=== PATIENT | male | born 1950 | race Asian ===

== ENCOUNTER 2018-09-11 08:15 | Day surgery (SDC) | payer OTHER ==
[2018-09-10 16:04] LABS: Absolute Lymphocytes (CBC) 2.2 K/uL (0.7-4.9); Absolute Monocytes 0.6 K/uL (0.1-1.3); Absolute Neutrophil 5.5 K/uL (1.8-8.0); Basophils % 0.9 % (0-1.3); Eosinophils % 3.7 % (0-4.4); Hematocrit 44.4 % (39.6-49.0); Lymphocytes % 25.3 % (15.3-44.8); MPV 7.8 fL (7.6-11.3); Monocytes % 7.2 % (3.3-12.3); RBC Red Blood Cell Count 4.84 M/uL (4.33-5.43)
[2018-09-10 16:19] LABS: ALT/SGPT 35 U/L (12-78); AST/SGOT 22 U/L (15-37); Albumin 4.1 g/dL (3.4-5.0); Alkaline Phosphatase 124 U/L (45-117); Amylase Level 115 U/L (25-115); BUN Blood Urea Nitrogen 21 mg/dL (7-18); Bicarbonate 29 mmol/L (21-32); Bilirubin Direct < 0.1 mg/dL (0-0.2); Bilirubin Total 0.2 mg/dL (0.2-1.0); Glucose Level 105 mg/dL (74-106); Lipase 377 U/L (73-393); Potassium 4.4 mmol/L (3.5-5.1); Protein, Total 8.5 g/dL (6.4-8.2); Sodium Level 142 mmol/L (136-145)
--- NOTE | 2018-09-10 17:48 | RAD REPORT ---
EXAM DESCRIPTION: RAD - Chest Pa And Lat (2 Views) - 09/10/2018 3:36 pm CLINICAL HISTORY: Preop chest, pending gallbladder surgery COMPARISON: July 2018 TECHNIQUE: PA and lateral views of the chest were obtained. FINDINGS: The lungs are clear. Lung markings are similar to comparison. Heart size is normal and ce ntral vasculature is within normal limits. No pleural effusion or pneumothorax seen. No acute bony finding noted. No aortic abnormality. Small metallic fragments are present in the right lateral so ft tissues. IMPRESSION: No acute cardiopulmonary process. No significant change from comparison.
[2018-09-11] MEDS ORDERED: Ringers Lactate 1,000 ML IV ONE (08:38)
[2018-09-11] MEDS: CEFOXITIN/SWI 1gm 1 GM/10 ML SYR ONE ×2 (09:48→10:40)
[2018-09-11] MEDS: BUPIVACAINE 0.5% PF 10 ML VIAL ONE ×2 (09:54→11:06)
[2018-09-11] MEDS ORDERED: PROPOFOL 200 MG/20 ML VIAL IV ONE (10:04)
[2018-09-11] MEDS ORDERED: FENTANYL CITR 100 MCG/2 ML ONE ×2 (10:05→11:17)
[2018-09-11] MEDS ORDERED: GLYCOPYRROLATE 0.2 MG/ML SYR ONE ×2 (10:05→10:06)
[2018-09-11] MEDS ORDERED: LIDOCAINE 2% MPF 5 ML VIAL ONE (10:06)
[2018-09-11] MEDS ORDERED: ROCURONIUM 50 MG/5 ML VIAL IV ONE (10:07)
[2018-09-11] MEDS ORDERED: NEOSTIGMINE 1 MG/ML -10 ML VIAL ONE (10:07)
[2018-09-11] MEDS ORDERED: MIDAZOLAM HCL 2 MG/2 ML INJ ONE (10:08)
[2018-09-11] MEDS ORDERED: BUPIVACAINE 0.5% PF 10 ML VIAL ONE (11:02)
[2018-09-11] MEDS ORDERED: EPHEDRINE SULF 50 MG/ML VIAL ONE (11:12)
--- NOTE | 2018-09-11 11:49 | P.BOP ---
Preoperative diagnosis: acute cholecystitis, symptomatic cholelithiasis Postoperative diagnosis: same, suppurative cholecystitis Primary procedure: Laparoscopic cholecystectomy Estimated blood loss: <10cc Specimen: gb Findings: gallbladder with pus inside Anesthesia: General Complications: None Drain(s): GABRIELA drain Transferred to: Recovery Room Condition: Good
[2018-09-11] MEDS ORDERED: NALOXONE 0.4 MG/ML VIAL ONE (11:59)
--- NOTE | 2018-09-11 23:28 | OP ---
Date of Procedure: 09/11/2018 Surgeon: Wilson Cedeño MD Preoperative Diagnoses: 1.Acute cholecystitis. 2.Symptomatic cholelithiasis. Postoperative Diagnoses: 1.Acute cholecystitis. 2.Symptomatic cholelithiasis. 3.Suppurative cholecystitis. Procedure: Laparoscopic cholecystectomy. Anesthesia: General plus local. Drain: GABRIELA #10. Findings: The patient has gallbladder thickening, distention, with a purulent discharge and content. Indications: This is the case of a 68-year-old patient who comes to us with above diagnosis. I full y explained the benefits, alternatives, and risks of laparoscopic, possible open cholecystectomy, whi ch include, but are not limited to infection, bleeding, damage to adjacent structures, anesthesia com plication, choledocholithiasis, bile leak, pancreatitis, KS, and even . He also understands thi s may not relieve any symptoms. He might need more than one surgical intervention. He understood, s igned a consent. Description Of Procedure: The patient was brought to the operating room, placed in supine position. Anesthesia was done without complication. Abdominal area was prepped and draped in a sterile fashio n. Marcaine 0.5% was injected for local anesthetic, followed by sharp incision of the skin in the in fraumbilical region. Incision was carried down to fascia, which was opened under direct vision. Per itoneum was encountered, opened under direct vision. Vicryl #1 placed inside the fascia. Mónica tro car was carefully introduced. Pneumoperitoneum was obtained. I placed 3 more trocars, 5 mm each one of them, under direct visualization in the right upper quadrant. This allowed me to see the gallbla dder wrapped with omentum. Carefully, the omentum was removed. Those adhesions were removed from th e gallbladder, noticing a distended and inflamed gallbladder with cholecystitis. In order for me to proceed, I had to do deflation of the gallbladder. So, under direct visualization, we put an Endo ne edle in the gallbladder. We noticed the patient had some purulent discharge coming from the gallblad gricelda. A grasper was placed in the fundus of the gallbladder. The needle was removed under direct vis ualization. Another grasper was placed in the infundibulum, and the gallbladder was retracted in the inferolateral fashion exposing the triangle of Calot and obtaining critical view of safety. The cys tic duct and cystic artery were clearly isolated and freed circumferentially, and a connection betwee n those and the gallbladder was clearly identified. I proceeded to ligate those by using at least 3 clips proximal, 1 clip distal, and ligation in middle. Same was done with the cystic artery. No arleth e leak. No bleeding. The gallbladder was removed from liver using Bovie cauterizer and removed from the abdominal cavity using EndoCatch through the umbilical incision. The area was inspected once ag ain with profuse irrigation of that area. Clips were intact. The patient had inflammation over the area, once again, and purulent discharge in the area of the gallbladder with inflammation surrounding the area. I believe it will be safer to leave a GABRIELA drain over that region to collect fluid from bao t area, and then we will remove that eventually. We are also going to treat the patient with antibio tics. He was already on Cipro and still having the results. No bile leak. No bleeding. The GABRIELA was connected to bulb suction and secured in place with 3-0 nylon. At that moment, we proceeded to nam[place] ve the trocars under direct vision, deflated the pneumoperitoneum, closed the fascia with #1 Vicryl, irrigated the subcutaneous tissue, closed that with 3-0 chromic and skin with ashlyn. Sponge count and instrument counts were correct. The patient tolerated the procedure well. The patient was sent to recovery in stable condition. RASHARD Voice ID: [id number] Report ID: [id number]
--- NOTE | 2018-09-11 23:58 | DS ---
Date of Discharge: 09/11/2018 Diagnoses: 1.Acute cholecystitis. 2.Symptomatic cholelithiasis. Procedure: Laparoscopic cholecystectomy. Disposition: Home if he can tolerate pain medication by mouth, and he is clinically stable. If he goes home today, then follow up in my office this Sunday to evaluate a GABRIELA drain for possible re moval. The patient will be added p.o. q.12 hours as an antibiotic. Vicodin q.4 hours p.r .n. pain. Keep area dry for 48 hours, then may shower. GABRIELA drain; record output every 24 hours. No heavy lifting. TRACEY/DAIN Voice ID: [id number] Report ID: [id number]
== END 2018-09-11 13:20 | disposition home or self-care (01) ==
LOC: OR 08:15
PROVIDERS: ATTEND Surgery
PROC: 0FT44ZZ Resection of Gallbladder, Percutaneous Endoscopic Approach (ICD-10-PCS; principal; 2018-09-11 09:30)
DX: K80.12 Calculus of gallbladder with acute and chronic cholecystitis without obstruction (principal); I10 Essential (primary) hypertension; I25.10 Atherosclerotic heart disease of native coronary artery without angina pectoris; K21.9 Gastro-esophageal reflux disease without esophagitis; I25.2 Old myocardial infarction; Z79.82 Long term (current) use of aspirin; Z95.5 Presence of coronary angioplasty implant and graft
CPT/HCPCS: 36415; 47562; 71046; 80048; 80076; 82150; 83690; 85025; 88304; J2250; J2310; J2704; J2710; J3010 ×2

== ENCOUNTER 2024-12-09 15:03 | Inpatient (IN) | payer OTHER ==
[2024-12-09 15:25] LABS: Absolute Basophils 0.1 K/uL (0-0.5); Absolute Eosinophils 0.2 K/uL (0-0.5); Absolute Lymphocytes (CBC) 1.5 K/uL (0.7-4.9); Absolute Monocytes 0.6 K/uL (0.1-1.3); Absolute Neutrophil 3.8 K/uL (1.8-8.0); Basophils % 1.2 % (0-1.3); Eosinophils % 3.7 % (0-4.4); Hematocrit 36.5 % (39.6-49.0); Hemoglobin 12.2 g/dL (13.6-17.9); Lymphocytes % 24.1 % (15.3-44.8); MCH 30.9 pg (27.0-35.0); MCHC 33.5 g/dL (32.0-36.0); MCV 92.3 fL (80-100); MPV 8.4 fL (7.6-11.3); Monocytes % 9.2 % (3.3-12.3); Neutrophils % 61.8 % (41.7-73.7); Nucleated Red Blood Cells % 0.1 % (0-0); Platelets 334 thou/uL (152-406); RBC Red Blood Cell Count 3.96 M/uL (4.33-5.43); Red Cell Distribution Width 15.7 % (12.1-15.2)
[2024-12-09 15:48] LABS: Anion Gap 9.6 mEq/L (5.0-15.0); Potassium 3.6 mEq/L (3.5-5.1); Troponin High Sensitivity 8.6 pg/mL (<58.9)
--- NOTE | 2024-12-09 15:48 | RAD REPORT ---
EXAM: Chest Single View HISTORY: 74 years Male near syncope COMPARISON: 09/10/2018 FINDINGS: LUNGS/PLEURA: Blunted left costophrenic angle with possible underlying atelectasis or consolidation. CARDIAC/MEDIASTINUM: The cardiac silhouette is within normal limits. UPPER ABDOMEN: No significant abnormality. BONES: Sternotomy. No acute abnormality. LINES/TUBES/OTHER: N/A IMPRESSION: Suspected small left pleural effusion or pleural parenchymal thickening with possible underlying atel ectasis. No definite acute process. No pulmonary edema.
--- NOTE | 2024-12-09 18:01 | RAD REPORT ---
EXAMINATION: CTA CHEST PE CLINICAL INDICATION: Male, 74 years old. hypotension, near syncope TECHNIQUE: This examination was performed according to an angiographic protocol with 3D post-processi ng. This involves 3D reconstructions, MIPs, volume rendered images and/or shaded surface rendering. One or more of the following dose reduction techniques were used: Automated exposure control, adjustm ent of the mA and/or kV according to patient size, and/or iterative reconstruction. Unless otherwise specified, incidental findings do not require dedicated imaging follow-up. [id number]. COMPARISON: Same-day chest radiograph FINDINGS: LOWER NECK: Visualized thyroid gland and soft tissues are normal. MEDIASTINUM AND LYMPH NODES: No mediastinal mass or fluid collection. Normal size mediastinal, hilar, and axillary lymph nodes. Mild distal esophageal thickening. THORACIC AORTA: No thoracic aortic aneurysm. Atherosclerotic changes are present. PULMONARY ARTERIES: Caliber is within normal limits. No pulmonary emboli identified. HEART: Normal heart size. Moderate coronary artery calcifications.No significant pericardial effusion . LUNGS AND AIRWAYS: Left lower lobe atelectasis with mild mucoid impacted left lower lobe airways but no definite consolidation..Motion artifact limits evaluation for pulmonary nodule detection. PLEURA: Small bilateral effusions. No pneumothorax. OSSEOUS STRUCTURES AND CHEST WALL: Sternotomy. No acute fracture. UPPER ABDOMEN: No acute abnormalities.Benign appearing low density liver lesions. IMPRESSION: Negative for pulmonary embolism. Small left pleural effusion and most likely atelectasis which may be in part related to some mucoid impacted left lower lobe airways. Pneumonia less likely but difficult to entirely exclude.
--- NOTE | 2024-12-09 18:33 | EDPHYS ---
Physician Documentation [facility] Name: Karla Cortes Jr Age: 74 yrs Sex: Male : 1950 Arrival Date: 12/09/2024 Time: 15:03 Bed 18 Private MD: ED Physician Yony Telles HPI: 12/09 16:56 This 74 yrs old Male presents to ER via EMS with complaints of Near Syncope. ms3 16:56 74-year-old male with past medical history of coronary arthrosclerosis presents to the [facility] emergency department via [facility] for near syncope episode and hypotension. Patient had triple bypass 3 weeks prior at [facility]. EMS notes patient has a history of syncopal episode. On EMS arrival patient's blood pressure was 80s over 40s. Patient was placed in Trendelenburg with improvement of blood pressure.. Historical: - Allergies: 15:08 No Known Allergies; me1 - PMHx: 15:08 Coronary atherosclerosis; me1 - PSHx: 15:08 Coronary artery bypass graft; me1 - Immunization history:: Adult Immunizations up to date. - Infectious Disease History:: Denies. - Social history:: Smoking status: Patient denies any tobacco usage or history of. ROS: 16:56 Constitutional: Negative for fever, and chills. Cardiovascular: Negative for chest ms3 pain, and palpitations. Respiratory: Negative for shortness of breath, cough, wheezing, and pleuritic chest pain, Abdomen/GI: Negative for abdominal pain, nausea, vomiting, diarrhea, and constipation, MS/Extremity: Negative for injury and deformity, Skin: Negative for injury, rash, and discoloration, 16:56 Neuro: Positive for near syncope, Exam: 16:56 Constitutional: This is a well developed, well nourished patient who is awake, alert, ms3 and in no acute distress. 16:56 Cardiovascular: Regular rate and rhythm with a normal S1 and S2. No gallops, murmurs, or rubs. Normal PMI, no JVD. No pulse deficits. Respiratory: Lungs have equal breath sounds bilaterally, clear to auscultation and percussion. No rales, rhonchi or wheezes noted. No increased work of breathing, no retractions or nasal flaring. Abdomen/GI: Soft, non-tender, with normal bowel sounds. No distension or tympany. No guarding or rebound. No evidence of tenderness throughout. Skin: Warm, dry with normal turgor. Normal color with no rashes, no lesions, and no evidence of cellulitis. Midline scar on sternum without erythema or drainage 16:56 Chest/axilla: Midline scar over sternum without erythema or drainage. 16:58 ECG was reviewed by the Attending Physician. ms3 Vital Signs: 15:05 BP 115 / 66; Pulse 61; Resp 18; Temp 98.4; Pulse Ox 99% ; Weight 67.13 kg; Height 5 ft. me1 5 in. ; Pain 0/10; 15:30 BP 119 / 55; Pulse 61; Resp 16; Pulse Ox 98% ; me1 16:00 BP 121 / 67; Pulse 63; Resp 16; Pulse Ox 99% ; me1 17:00 BP 124 / 54; Pulse 63; Resp 16; Pulse Ox 97% ; me1 18:00 BP 121 / 70; Pulse 62; Resp 14; Pulse Ox 98% ; me1 15:05 Body Mass Index 24.63 (67.13 kg, 165.1 cm) me1 15:05 Pain Scale: Adult me1 MDM: 15:08 Medical Screening Exam initiated ms3 16:56 Differential Diagnosis: cardiac arrhythmia, drug effect, idiopathic syncope, vasovagal ms3 episode. 19:10 Data reviewed: vital signs, nurses notes, lab test result(s), EKG, radiologic studies, ms3 and as a result, I will admit patient. Consideration of Admission/Observation Patient was admitted/placed on observation. Management of patient was discussed with the following: Hospitalist: Dr Marmolejo. Management of patient was discussed with the following: Production Machine Shop Supervisor: Dr Rivera- Recommends Echo in the morning. Independent interpretation of the following test(s) in the Emergency Department EKG: See my EKG interpretation above. Counseling: I had a detailed discussion with the patient and/or guardian regarding the historical points, exam findings, and any diagnostic results supporting the discharge/admit diagnosis, lab results, radiology results, the need for further work-up and treatment in the hospital. ED course: Discussed necessity for observation with patient's family. They understand and agree with plan. All questions were answered. 12/09 15:08 Order name: Basic Metabolic Panel; Complete Time: 15:57 ms3 12/09 15:08 Order name: CBC with Diff; Complete Time: 15:57 ms3 12/09 15:08 Order name: D-Dimer; Complete Time: 15:57 ms3 12/09 15:08 Order name: Magnesium; Complete Time: 15:57 ms3 12/09 15:08 Order name: NT PRO-BNP; Complete Time: 15:57 ms3 12/09 15:08 Order name: Troponin HS; Complete Time: 15:57 ms3 12/09 20:07 Order name: CBC with Automated Diff EDMS 12/09 20:07 Order name: Comprehensive Metabolic Panel EDMS 12/09 20:07 Order name: Magnesium EDMS 12/09 20:07 Order name: Lipid Profile EDMS 12/09 20:07 Order name: Lipid Profile EDMS 12/09 20:07 Order name: Troponin High Sensitivity EDMS 12/09 20:07 Order name: Troponin High Sensitivity EDMS 12/09 20:07 Order name: Troponin High Sensitivity EDMS 12/09 20:07 Order name: Troponin High Sensitivity EDMS 12/09 20:07 Order name: Troponin High Sensitivity EDMS 12/09 20:07 Order name: Troponin High Sensitivity EDMS 12/09 15:08 Order name: XRAY Chest (1 view); Complete Time: 15:57 ms3 12/09 15:58 Order name: CT Chest For PE Angio; Complete Time: 18:07 ms3 12/09 20:07 Order name: Echo with Doppler ED12/09 15:08 Order name: EKG; Complete Time: 15:09 ms3 12/09 20:07 Order name: CONS Physician Consult ED12/09 15:08 Order name: Cardiac monitoring; Complete Time: 15:25 ms3 12/09 15:08 Order name: EKG - Nurse/Tech; Complete Time: 15:25 ms3 12/09 15:08 Order name: IV Saline Lock; Complete Time: 15:12 ms3 12/09 15:08 Order name: Labs collected and sent; Complete Time: 15:12 ms3 12/09 15:08 Order name: O2 Per Protocol; Complete Time: 15:12 ms3 12/09 15:08 Order name: O2 Sat Monitoring; Complete Time: 15:12 ms3 EC:58 Rate is 61 beats/min. Rhythm is regular. QRS [place] is Normal. PA interval is normal. QRS ms3 interval is normal. Clinical impression: NSR w/ Non-specific ST/T Changes. Interpreted by me. Reviewed by me. Administered Medications: No medications were administered Disposition Summary: 12/09/24 18:33 Hospitalization Ordered Notes: Hospitalization Status: Observation ms3 Provider: Obey Marmolejo ms3 Condition: Stable ms3 Problem: new ms3 Symptoms: are unchanged ms3 Bed/Room Type: Standard ms3 Location: [facility] ER HOLD(12/10/24 12:47) 7 Room Assignment: ERHOLD-(12/10/24 12:47) jl7 Diagnosis - Syncope Near ms3 - Hypotension, unspecified ms3 Forms: - Medication Reconciliation Form ms3 - SBAR form ms3 - Leadership Thank You Letter ms3 Signatures: Dispatcher [employer] EDMS Merlyn Montes Jahala, RN RN jl7 Yony Telles, DO ms3 Kylie Torres RN RN vc1 Kandice Pennington RN RN me1 Corrections: (The following items were deleted from the chart) 15:09 15:09 BASIC METABOLIC PANEL+C.LAB.BRZ ordered. EDMS EDMS 15:09 15:09 CBC+H.LAB.BRZ ordered. EDMS EDMS 15:09 15:09 D-DIMER+COAG.LAB.BRZ ordered. EDMS EDMS 15:09 15:09 MAGNESIUM+C.LAB.BRZ ordered. EDMS EDMS 15:09 15:09 PROBNP+C.LAB.BRZ ordered. EDMS EDMS 15:09 15:09 Troponin High Sensitivity+C.LAB.BRZ ordered. EDMS EDMS 21:04 18:33 Telemetry/MedSurg (observation) ms3 vc1 21:04 18:33 ms3 vc1 12/10 11:03 12/09 21:04 [facility] ER HOLD vc1 bd 12/10 11:03 12/09 21:04 ERHOLD- vc1 bd 12/10 12:47 11:03 Telemetry/MedSurg (observation) bd jl7 12:47 11:03 430 bd jl7
--- NOTE | 2024-12-09 18:33 | ER ---
Nurse's Notes [facility] Name: Karla Cortes Jr Age: 74 yrs Sex: Male : 1950 Arrival Date: 12/09/2024 Time: 15:03 Bed 18 Private MD: Diagnosis: Syncope Near;Hypotension, unspecified Presentation: 12/09 15:05 Chief complaint: EMS states: toned out for near syncope. Patient was eating and became me1 lightheaded. No LOC. Triple bypass done about 3 weeks ago. Hx of syncopal episodes. BP was 80/40 sitting when EMS arrived. Coronavirus screen: Vaccine status: Patient reports receiving the 2nd dose of the covid vaccine. Ebola Screen: No symptoms or risks identified at this time. Initial Sepsis Screen: Does the patient meet any 2 criteria? No. Patient's initial sepsis screen is negative. Does the patient have a suspected source of infection? No. Patient's initial sepsis screen is negative. Risk Assessment: Do you want to hurt yourself or someone else? Patient reports no desire to harm self or others. Onset of symptoms was December 09, 2024 at 14:30. 15:05 Method Of Arrival: EMS: [facility] 15:05 Acuity: JIM 3 me1 Triage Assessment: 15:09 General: Appears in no apparent distress. well groomed, well developed, well nourished, me1 Behavior is calm, cooperative, appropriate for age, Reports near syncope when eating. No complaints at this time. Pain: Denies pain. EENT: No signs and/or symptoms were reported regarding the EENT system. Neuro: Level of Consciousness is awake, alert, obeys commands, Oriented to person, place, time, situation, Appropriate for age. Neuro: Reports near syncope. Cardiovascular: Patient's skin is warm and dry. Respiratory: Airway is patent Respiratory effort is even, unlabored, Respiratory pattern is regular, symmetrical. GI: No signs and/or symptoms were reported involving the gastrointestinal system. : No signs and/or symptoms were reported regarding the genitourinary system. Derm: Skin is intact, is healthy with good turgor, Skin is pink, warm \T\ dry. Musculoskeletal: No signs and/or symptoms reported regarding the musculoskeletal system. Historical: - Allergies: 15:08 No Known Allergies; me1 - PMHx: 15:08 Coronary atherosclerosis; me1 - PSHx: 15:08 Coronary artery bypass graft; me1 - Immunization history:: Adult Immunizations up to date. - Infectious Disease History:: Denies. - Social history:: Smoking status: Patient denies any tobacco usage or history of. Screenin:11 [facility] ED Fall Risk Assessment (Adult) History of falling in the last 3 months, me1 including since admission No falls in past 3 months (0 pts) Confusion or Disorientation No (0 pts) Intoxicated or Sedated No (0 pts) Impaired Gait No (0 pts) Mobility Assist Device Used No (0 pt) Altered Elimination No (0 pt) Score/Fall Risk Level 0 - 2 = Low Risk Maintained a safe environment, Provided non-skid footwear, Hourly rounding (assess needs \T\ fall precautionary measures) done. Abuse screen: Denies threats or abuse. Nutritional screening: No deficits noted. Tuberculosis screening: No symptoms or risk factors identified. Assessment: 15:11 General: see triage assessment. me1 Vital Signs: 15:05 BP 115 / 66; Pulse 61; Resp 18; Temp 98.4; Pulse Ox 99% ; Weight 67.13 kg; Height 5 ft. me1 5 in. ; Pain 0/10; 15:30 BP 119 / 55; Pulse 61; Resp 16; Pulse Ox 98% ; me1 16:00 BP 121 / 67; Pulse 63; Resp 16; Pulse Ox 99% ; me1 17:00 BP 124 / 54; Pulse 63; Resp 16; Pulse Ox 97% ; me1 18:00 BP 121 / 70; Pulse 62; Resp 14; Pulse Ox 98% ; me1 15:05 Body Mass Index 24.63 (67.13 kg, 165.1 cm) me1 15:05 Pain Scale: Adult me1 ED Course: 15:05 Patient arrived in ED. me1 15:05 Inserted saline lock: 20 gauge in right antecubital area, using aseptic technique. ld1 Blood collected. Flushed with 10 mL NS. 15:08 Yony Telles DO is Attending Physician. ms3 15:08 Triage completed. me1 15:09 Arm band placed on Patient placed in an exam room. me1 15:11 No provider procedures requiring assistance completed. me1 15:11 Patient has correct armband on for positive identification. Bed in low position. Call me1 light in reach. Side rails up X2. Provided Education on: POC. Verbalized understanding.. Client placed on continuous cardiac and pulse oximetry monitoring. NIBP monitoring applied. teletypesetter monitor on. Pulse ox on. NIBP on. 15:12 Basic Metabolic Panel Sent. me1 15:12 CBC with Diff Sent. me1 15:12 D-Dimer Sent. me1 15:12 Magnesium Sent. me1 15:12 NT PRO-BNP Sent. me1 15:12 Troponin HS Sent. me1 15:25 Kandice Pennington, RN is Primary Nurse. me1 15:26 EKG done, by ED staff, reviewed by Yony Telles DO. me1 15:44 XRAY Chest (1 view) In Process Unspecified. EDMS 17:49 CT Chest For PE Angio In Process Unspecified. EDMS 18:32 Obey Marmolejo MD is Hospitalizing Provider. ms3 12/10 07:00 Patient admitted, IV remains in place. intact, No redness/swelling at site. jl7 Administered Medications: No medications were administered Medication: 12/09 15:11 VIS not applicable for this client. me1 Outcome: 18:33 Decision to Hospitalize by Provider. ms3 12/10 07:00 Admitted to ER Hold. Please see [facility] for further documentation. jl7 Condition: stable Discharge instructions given to patient, family, Instructed on the need for admit, Demonstrated understanding of instructions, 15:39 Patient left the ED. jl7 Signatures: Dispatcher [employer] Miguelangel Delcid RN Yony Hernandez DO DO ms3 Laura Telles RN RN 1 Kandice Pennington, FRANCISCO JAVIER RN nh1
[2024-12-09] MEDS ORDERED: ONDANSETRON 4 MG/2 ML VIAL IV PRN (20:00)
[2024-12-09 22:51] VITALS: BMI 24.6
[2024-12-09] MEDS: AMIODARONE HCL 200 MG TAB PO ONE (23:55)
[2024-12-10] MEDS ORDERED: AMIODARONE HCL 200 MG TAB ONE (00:09)
[2024-12-10 04:48] LABS: Absolute Basophils 0.1 K/uL (0-0.5); Absolute Eosinophils 0.2 K/uL (0-0.5); Absolute Lymphocytes (CBC) 1.6 K/uL (0.7-4.9); Absolute Monocytes 0.5 K/uL (0.1-1.3); Absolute Neutrophil 3.7 K/uL (1.8-8.0); Basophils % 1.1 % (0-1.3); Eosinophils % 3.9 % (0-4.4); Hematocrit 37.5 % (39.6-49.0); Hemoglobin 13.1 g/dL (13.6-17.9); Lymphocytes % 25.8 % (15.3-44.8); MCH 31.8 pg (27.0-35.0); MCV 90.9 fL (80-100); Monocytes % 8.8 % (3.3-12.3); Neutrophils % 60.4 % (41.7-73.7); Nucleated Red Blood Cells % 0.1 % (0-0); Platelets 315 thou/uL (152-406); RBC Red Blood Cell Count 4.13 M/uL (4.33-5.43); Red Cell Distribution Width 15.6 % (12.1-15.2)
[2024-12-10 05:01] LABS: Albumin 3.5 g/dL (3.4-5.0); Albumin/Globulin Ratio 1.1 (1.1-1.8); Anion Gap 9.6 mEq/L (5.0-15.0); Bilirubin Total 0.5 mg/dL (0.2-1.0); Globulin 3.2 g/dL (2.3-3.5); Magnesium 2.1 mg/dL (1.6-2.4); Potassium 3.6 mEq/L (3.5-5.1); Protein, Total 6.7 g/dL (6.4-8.2)
--- NOTE | 2024-12-10 05:13 | P.HP ---
Certification for Inpatient Patient admitted to: Inpatient With expected LOS: >2 Midnights Patient will require the following post-hospital care: None Practitioner: I am a practitioner with admitting privileges, knowledge of patient current condition, hospital course, and medical plan of care. Services: Services provided to patient in accordance with Admission requirements found in Title 42 Section 412.3 of the Code of Federal Regulations Patient History Date of Service: 12/09/24 Reason for admission: Near syncope History of Present Illness: Patient is a 74-year-old gentleman who came to the hospital with a near syncopal event. Patient recently had three-vessel coronary artery bypass grafting and patient was seen by his cardiothoracic surgeon yesterday and cleared for continued increased activity. Patient had been passing out prior to his coronary artery bypass grafting since his surgery has been doing fairly well and improving per schedule. Patient was eating dinner with the family when he suddenly got lightheaded. He did not pass out and the family brought him in for evaluation. In the ER patient was evaluated initially had a blood pressure of 80 over 40s. Patient was hydrated and blood pressure stable at this time. Patient's family denies a history of arrhythmias. However, patient is on amiodarone. Patient will be monitoring on telemetry and will get an echocardiogram in the morning. Patient's hemodynamics are stable and patient will be admitted for inpatient hospitalization. Will await cardiology consultation at this time and continue with observation stay. Allergies No Known Allergies Allergy (Verified 10/30/24 11:38) Home Medications: Aspirin [Aspirin EC 81 MG] 81 mg PO DAILY 01/12/17 allopurinoL [Zyloprim*] 300 mg PO DAILY 02/02/17 Alive Multivitamin 1 tab PO DAILY 09/10/18 Ciprofloxacin HCl 500 mg PO BID 09/10/18 Ibuprofen/Famotidine [Duexis 800-26.6 mg Tablet] 1 each PO PRN 09/10/18 Omeprazole [Prilosec] 40 mg PO DAILY 09/10/18 Amox/Clavulanate [Augmentin 875-125 Tab] 1 each PO BID #14 tab 09/11/18 Hydrocodone/Acetaminophen [Vicodin 5-325 mg Tablet] 1 each PO Q4H PRN #30 tablet 09/11/18 Pravastatin Sodium [Pravachol] 40 mg PO BEDTIME 09/11/18 - Past Medical/Surgical History Has patient received pneumonia vaccine in the past: No Diabetic: No -: GOUT -: Coronary artery disease -: Hyperlipidemia -: GERD -: Cardiac arrhythmia -: Coronary artery bypass grafting - Family History Father Family History: Reviewed- Non-Contributory - Social History Smoking Status: Never smoker Alcohol use: No CD- Drugs: No Caffeine use: No Review of Systems 10-point ROS is otherwise unremarkable Physical Examination - Vital Signs Temperature: 98.1 F Blood Pressure: 114/63 Pulse: 67 Respirations: 16 Pulse Ox (%): 95 - Physical Exam General: Alert, In no apparent distress, Oriented x3 HEENT: Atraumatic, PERRLA, Mucous membr. moist/pink, EOMI, Sclerae nonicteric Neck: Supple, 2+ carotid pulse no bruit, No LAD, Without JVD or thyroid abnormality Respiratory: Clear to auscultation bilaterally, Normal air movement Cardiovascular: Regular rate/rhythm, Normal S1 S2, No murmurs Gastrointestinal: Normal bowel sounds, Soft and benign, Non-distended, No tenderness Musculoskeletal: No clubbing, No swelling, No tenderness Integumentary: Other (Midsternal scarring) Neurological: Normal gait, Normal speech, Normal strength at 5/5 x4 extr, Normal tone, Sensation intact, Cranial nerves 3-12 intact, Normal affect Lymphatics: No axilla or inguinal lymphadenopathy - Studies Laboratory Data (last 24 hrs) 12/09/24 12/09/24 15:13 15:13 WBC 6.20 Hgb 12.2 L Hct 36.5 L Plt Count 334 Sodium 139 Potassium 3.6 BUN 18 Creatinine 1.39 H Glucose 156 H Magnesium 2.0 Assessment & Plan - Problems (Diagnosis) (1) Near syncope Current Visit: Yes Status: Acute (2) History of coronary artery bypass graft x 3 Current Visit: Yes Status: Acute (3) History of cardiac arrhythmia Current Visit: Yes Status: Acute (4) CAD (coronary artery disease) Onset Date: 02/07/17 Current Visit: No Status: Acute - Plan Plan: 1. Near syncope in a patient with a recent coronary artery bypass grafting x 3; patient be monitored on telemetry and will do echocardiogram and carotid D oppler in a.m. Cardiology consulted from the ER and they will see the patient as well in the morning. Patient had a three-vessel CABG done at [facility]. Patient been seen by his cardiothoracic surgeon postoperatively and he was cleared for increased activity. Will monitor patient's hemodynamics closely. Continue with strict blood pressure and blood sugar control. Patient will be admitted for observation 2. History of CAD status post CABG as mentioned above; continue with cardiac disease 3. History of hypertension; resume antihypertensives 4. History of gout; continue with allopurinol 5. GI DVT prophylaxis Discharge Plan: Home Plan to discharge in: Greater than 2 days - Advance Directives Does patient have a Living Will: No Does patient have a Durable POA for Healthcare: No - Code Status/Comfort Care Code Status Assessed: Yes Code Status: Full Code Critical Care: No Time Spent Managing PTS Care (In Minutes): 45
[2024-12-10] MEDS ORDERED: FLU (Fluarix Triv) TS24-25(6MOS UP)/PF 45 MCG/0.5 ML Syringe IM ONE (07:30)
[2024-12-10] MEDS ORDERED: PNEUMOCOCCAL VACCINE 0.5 ML IMVAC ONE (08:00)
[2024-12-10] MEDS ORDERED: CLOPIDOGREL 75 MG TABLET PO SCH (09:00)
[2024-12-10] MEDS ORDERED: ENOXAPARIN 40 MG/0.4 ML SQ SCH (09:00)
[2024-12-10] MEDS: ASPIRIN EC 81 MG TAB PO SCH (11:00)
[2024-12-10] MEDS: AMIODARONE HCL 200 MG TAB PO SCH (11:00)
--- NOTE | 2024-12-10 12:21 | P.CNS ---
Date of Consult: 12/10/24 Chief Complaint: Near syncope History of Present Illness: Patient with PMH of CAD s/p recent CABG x 3 in [facility], presented with near syncope, no palpitations, no chest pain, no SOB, no VOGEL, patient denies passing out, he report similar episodes in the past. Allergies No Known Allergies Allergy (Verified 10/30/24 11:38) Home medications list reviewed: Yes Home Medications: Aspirin [Aspirin EC 81 MG] 81 mg PO DAILY 01/12/17 Amiodarone HCl [Pacerone] 200 mg PO BID 12/10/24 Atorvastatin Calcium 40 mg PO BEDTIME 12/10/24 Clopidogrel Bisulfate [Plavix] 75 mg PO DAILY 12/10/24 Colchicine 0.3 mg PO BID 12/10/24 Metoprolol Tartrate 12.5 mg PO BID 12/10/24 - Past Medical/Surgical History Diabetic: No -: GOUT -: Coronary artery disease -: Hyperlipidemia -: GERD -: Cardiac arrhythmia -: Coronary artery bypass grafting - Family History Father Family History: Reviewed- Non-Contributory - Social History Alcohol use: No CD- Drugs: No Caffeine use: No Review of Systems 10-point ROS is otherwise unremarkable Physical Examination Temp Pulse Resp BP Pulse Ox 97.9 F 64 16 93/53 L 94 12/10/24 08:00 12/10/24 08:00 12/10/24 08:00 12/10/24 08:00 12/10/24 08:00 General: Alert, In no apparent distress HEENT: Atraumatic, PERRLA, Mucous membr. moist/pink, EOMI, Sclerae nonicteric Neck: Supple, 2+ carotid pulse no bruit, No LAD, Without JVD or thyroid abnormality Respiratory: Clear to auscultation bilaterally, Normal air movement Cardiovascular: Regular rate/rhythm, Normal S1 S2 Gastrointestinal: Normal bowel sounds, No tenderness Musculoskeletal: No tenderness Integumentary: No rashes Neurological: Normal gait, Normal speech, Normal tone, Normal affect Lymphatics: No axilla or inguinal lymphadenopathy Laboratory Data (last 24 hrs) 12/09/24 12/09/24 15:13 15:13 WBC 6.20 Hgb 12.2 L Hct 36.5 L Plt Count 334 Sodium 139 Potassium 3.6 BUN 18 Creatinine 1.39 H Glucose 156 H Magnesium 2.0 - Problems (1) HTN (hypertension) Current Visit: Yes Status: Acute Plan: continue lopressor 12.5 mg po BID Continue to monitor (2) History of coronary artery bypass graft x 3 Current Visit: Yes Status: Acute Plan: repeated echo shows normal EF, [place] motion. continue ASA and Plavix and Lipitor continue to follow up with cardiology (3) Near syncope Current Visit: Yes Status: Acute Plan: echo is normal, tele no arrhythmia, negative cardiac markers most likely secondary to deconditioning advised to follow up with cardiology for 14 days event monitor
--- NOTE | 2024-12-10 12:22 | ECHO ---
HEIGHT: 5 ft 5 in WEIGHT: 148 lb 0 oz DATE OF STUDY: 12/10/[address]: Obey Marmolejo MD 2-DIMENSIONAL: YES M.MODE: YES DOPPLER: YES COLOR FLOW: YES TDS: PORTABLE: YES DEFINITY: BUBBLE STUDY: DIAGNOSIS: CORONARY ARTERY DISEASE CARDIAC HISTORY: CATHERIZATION: YES SURGERY: YES PROSTHETIC VALVE: NO PACEMAKER: NO MEASUREMENTS (cm) DIASTOLIC (NORMALS) SYSTOLIC (NORMALS) IVSd 1.1 (0.6-1.2) LA Diam 2.5 (1.9-4.0) LVEF 55-60% LVIDd 2.7 (3.5-5.7) LVIDs 2.0 (2.0-3.5) %FS 26% LVPWd 1.2 (0.6-1.2) Ao Diam 2.9 (2.0-3.7) 2 DIMENSIONAL ASSESSMENT: RIGHT ATRIUM: NORMAL LEFT ATRIUM: NORMAL RIGHT VENTRICLE: NORMAL LEFT VENTRICLE: NORMAL TRICUSPID VALVE: TRACE TRICUSPID REGURGITATION MITRAL VALVE: NORMAL PULMONIC VALVE: NORMAL AORTIC VALVE: NORMAL PERICARDIAL EFFUSION: NONE AORTIC ROOT: NORMAL LEFT VENTRICULAR WALL MOTION: NORMAL WALL MOTION, PARADOXICAL SEPTAL MOTION DOPPLER/COLOR FLOW: GRADE I DIASTOLIC DYSFUNCTION COMMENTS: 1. NORMAL LEFT VENTRICULAR SYSTOLIC FUNCTION, EJECTION FRACTION 55-60%, NORMAL WALL MOTION 2. GRADE I DIASTOLIC DYSFUNCTION 3. NORMAL FILLING PRESSURE (RIGHT ATRIAL PRESSURE 0-5 mmHg) TECHNOLOGIST: SAVANNA DUNCAN
[2024-12-10 15:52] VITALS: TEMP 98.4
[2024-12-10 15:59] VITALS: BP 121/70; O2SAT 98
--- NOTE | 2024-12-10 20:19 | P.DS ---
Admission Date: 12/09/24 Discharge Date: 12/10/24 Disposition: ROUTINE DISCHARGE Discharge Condition: FAIR Reason for Admission: Near syncope Hospital Course: Diagnosis Near syncope Drug-induced hypotension History of coronary artery bypass graft x 3 History of cardiac arrhythmia CAD (coronary artery disease) Patient with a history of recent CABG 3 weeks ago presented to the emergency department after passing out while seated and eating. Patient was evaluated for syncope. Positive findings including low BP on presentation. Patient is on metoprolol which was held during the hospital stay. His BP improved. Other workup for syncope including echocardiogram was unremarkable and showed normal function (EF). Patient evaluated by cardiology Dr. Parks., He is currently asymptomatic, no arrhythmias noted on the environmental monitoring technician. Patient deemed stable for discharge. Patient is on amiodarone 200 mg daily which is resumed on discharge. Patient advised not to take his metoprolol if his systolic blood pressures less than 120 and to wait for the next dose check the blood pressure to make sure it is above 120 before he takes the metoprolol. Patient advised to follow-up with his child advocate for an event monitor. Vital Signs/Physical Exam: Temp Pulse Resp BP Pulse Ox 98.4 F 62 14 121/70 98 12/10/24 15:51 12/10/24 15:57 12/10/24 15:57 12/10/24 15:57 12/10/24 12:00 General: Alert, In no apparent distress, Oriented x3 HEENT: Mucous membr. moist/pink, Sclerae nonicteric Neck: Supple, JVD not distended Respiratory: Clear to auscultation bilaterally, Normal air movement Cardiovascular: No edema, Regular rate/rhythm, Normal S1 S2 Gastrointestinal: Normal bowel sounds, Soft and benign, Non-distended, No tenderness Musculoskeletal: No swelling Integumentary: No rashes, No cyanosis Neurological: Normal strength at 5/5 x4 extr Laboratory Data at Discharge: WBC 6.10 thou/uL (4.3-10.9) 12/10/24 04:29 Hgb 13.1 g/dL (13.6-17.9) L 12/10/24 04:29 Hct 37.5 % (39.6-49.0) L 12/10/24 04:29 Plt Count 315 thou/uL (152-406) 12/10/24 04:29 Sodium 140 mEq/L (136-145) 12/10/24 04:29 Potassium 3.6 mEq/L (3.5-5.1) 12/10/24 04:29 BUN 14 mg/dL (7-18) 12/10/24 04:29 Creatinine 1.01 mg/dL (0.70-1.30) 12/10/24 04:29 Glucose 91 mg/dL (74-106) 12/10/24 04:29 Magnesium 2.1 mg/dL (1.6-2.4) 12/10/24 04:29 Total Bilirubin 0.5 mg/dL (0.2-1.0) 12/10/24 04:29 AST 27 U/L (15-37) 12/10/24 04:29 ALT 43 U/L (16-61) 12/10/24 04:29 Alkaline Phosphatase 108 U/L (45-117) 12/10/24 04:29 Triglycerides 116 mg/dL (<150) 12/10/24 04:29 Cholesterol 81 mg/dL (<200) 12/10/24 04:29 HDL Cholesterol 28 mg/dL (40-60) L 12/10/24 04:29 Cholesterol/HDL Ratio 2.89 12/10/24 04:29 Home Medications: Aspirin [Aspirin EC 81 MG] 81 mg PO DAILY 01/12/17 Amiodarone HCl [Pacerone] 200 mg PO DAILY #30 tab 12/10/24 Atorvastatin Calcium 40 mg PO BEDTIME 12/10/24 Clopidogrel Bisulfate [Plavix*] 75 mg PO DAILY 12/10/24 Colchicine 0.3 mg PO BID 12/10/24 Metoprolol Tartrate 12.5 mg PO BID 12/10/24 New Medications: Amiodarone HCl [Pacerone] 200 mg PO DAILY #30 tab Physician Discharge Instructions: Patient with a history of recent CABG 3 weeks ago presented to the emergency department after passing out while seated and eating. Patient was evaluated for syncope. Positive findings including low BP on presentation. Patient is on metoprolol which was held during the hospital stay. His BP improved. Other workup for syncope including echocardiogram was unremarkable and showed no rmal function (EF). Patient evaluated by cardiology Dr. Parks., He is currently asymptomatic, no arrhythmias noted on the environmental monitoring technician. Patient deemed stable for discharge. Patient is on amiodarone 200 mg daily which is resumed on discharge. Patient advised not to take his metoprolol if his systolic blood pressures less than 120 and to wait for the next dose check the blood pressure to make sure it is above 120 before he takes the metoprolol. Patient advised to follow-up with his child advocate for an event monitor. Diet: AHA Activity: Fall precautions Followup: ZAC FRANK [Primary Care Provider] - 1 Week Time spent managing pt's care (in minutes): 36
--- NOTE | 2024-12-11 11:58 | EKG ---
Test Date: 2024-12-09 Test Time: 15:17:20 Vessel Specialist: MEASUREMENT RESULTS: Intervals: Rate: 61 NV: 194 QRSD: 100 QT: 518 QTc: 521 [place]: P: 7 NV: 194 QRS: 52 T: 263 INTERPRETIVE STATEMENTS: Normal sinus rhythm Possible Inferior infarct, age undetermined ST & T wave abnormality, consider anterolateral ischemia Prolonged QT Abnormal ECG Compared to ECG 02/23/2017 11:05:16 Myocardial infarct finding now present ST (T wave) deviation now present Possible ischemia now present Prolonged QT interval now present Electronically Signed On 12-11-24 11:55:45 CDT by Gregory Rivera
== END 2024-12-10 15:44 | disposition home or self-care (01) | DRG 312 ==
LOC: ER 15:03 → ERHOLD 20:00 → 4TH 12-10 11:44 → ERHOLD 12-10 12:33
PROVIDERS: ADMIT Hospitalist; ATTEND Internal Medicine
DX: I95.2 Hypotension due to drugs (principal); E78.5 Hyperlipidemia, unspecified; K21.9 Gastro-esophageal reflux disease without esophagitis; I25.10 Atherosclerotic heart disease of native coronary artery without angina pectoris; T44.7X5A Adverse effect of beta-adrenoreceptor antagonists, initial encounter; Z95.1 Presence of aortocoronary bypass graft; Z79.82 Long term (current) use of aspirin; Z79.899 Other long term (current) drug therapy
CPT/HCPCS: 36415; 71045; 71275; 80048; 80053; 80061; 83735; 83880; 84484; 85025; 85379; 93005; 93306; 99285; Q9967